=== PATIENT | male | born 1995 | race Caucasian/White ===

== ENCOUNTER 2019-08-23 20:00 | Inpatient (IN) | payer MEDICAID ==
[~2019-08-23] VITALS: Ht 175.3 cm; Wt 108.3 kg
[~2019-08-23 20:00] MED LIST: BUSP10TA23 PO; ESZO2 PO; PROZ10 PO
[2019-08-23] MEDS ORDERED: HYDR-4031 PO (20:27)
[2019-08-23] MEDS ORDERED: RISP1 PO (20:27)
[2019-08-23 20:54] LABS: BASOPHILS % (AUTO) 0.8 % (0.0-2.0); EOSINOPHILS % (AUTO) 1.7 % (1.0-6.0); HEMATOCRIT 50.2 % (41-53); HEMOGLOBIN 16.4 g/dL (13.5-17.5); LYMPHOCYTES # (AUTO) 2.8 K/uL (1.0-4.8); MEAN CORPUSCULAR HGB CONC 32.7 G/dL (31.0-37.0); MEAN CORPUSCULAR VOLUME 76 fL (80-100); MONOCYTES # (AUTO) 0.8 K/uL (0.1-1.0); MONOCYTES % (AUTO) 11.1 % (2.0-9.0); NEUTROPHILS # (AUTO) 3.7 K/uL (1.8-7.7); NEUTROPHILS % (AUTO) 49.4 % (40.0-70.0); PLATELET COUNT (AUTO) 295 K/uL (150-450); RED BLOOD CELL COUNT(AUTO) 6.58 MIL/uL (4.50-5.90); RED CELL DISTRIBUTION WIDTH 13.3 % (11.5-14.5)
[2019-08-23 21:01] LABS: ANION GAP 9 mmol/L (8-16); CALCIUM, TOTAL 9.1 mg/dL (8.8-10.5); CARBON DIOXIDE 28 mmol/L (22-29); CHLORIDE 102 mmol/L (98-107); CREATININE 0.91 mg/dL (0.60-1.30); GLOMERULAR FILTR. RATE CALC > 60 mL/min (>60); GLUCOSE,RANDOM 84 mg/dL (70-110); POTASSIUM 3.7 mmol/L (3.5-5.1); SODIUM SERUM 139 mmol/L (136-145); UREA NITROGEN, BLOOD 7 mg/dL (7-18)
[2019-08-23 21:04] LABS: AMPHET/METH SCREEN,URINE NEGATIVE (NEGATIVE); BARBITURATE SCREEN, URINE NEGATIVE (NEGATIVE); BENZODIAZEPINES SCREEN,URINE NEGATIVE (NEGATIVE); CANNABINOID SCREEN,URINE NEGATIVE (NEGATIVE); COCAINE SCREEN,URINE NEGATIVE (NEGATIVE); METHADONE SCREEN, URINE NEGATIVE (NEGATIVE); OPIATE SCREEN,URINE NEGATIVE (NEGATIVE)
[2019-08-23 21:05] LABS: PHENCYCLIDINE SCREEN,URINE NEGATIVE (NEGATIVE)
[2019-08-23 21:07] LABS: ALANINE AMINOTRANSFERASE 128 U/L (12-78); ALBUMIN 4.7 g/dL (3.4-5.0); ALKALINE PHOSPHATASE 87 U/L (46-116); ASPARTATE AMINOTRANSFERASE 42 U/L (15-37); BILIRUBIN,TOTAL 0.7 mg/dL (0.1-1.0); TOTAL PROTEIN, SERUM 8.5 g/dL (6.4-8.2)
[2019-08-24] MEDS ORDERED: HydrOXYzine PAMOATE 25 MG CAPSULE PO ONE (00:30)
[2019-08-24] MEDS ORDERED: RisperiDONE 1 MG TABLET PO ONE (00:30)
[2019-08-24] MEDS ORDERED: LORazepam 2 MG TABLET PO PRN (01:15)
[2019-08-24] MEDS ORDERED: HALOPERIDOL 5 MG TABLET PO PRN (01:15)
[2019-08-24] MEDS ORDERED: ZOLPIDEM TARTRATE 10 MG TABLET PO PRN (01:15)
[2019-08-24 02:22] VITALS: BP 138/86
[2019-08-24] MEDS ORDERED: INFLUENZA VIRUS VACCINE QVS 2019-20 (3YR+)/PF 60 MCG/0.5 ML SYRINGE IM ONE (02:30)
[2019-08-24 10:48] VITALS: BP 139/81
[2019-08-24] MEDS: RisperiDONE 1 MG TABLET PO SCH ×3 (13:30→20:01)
[2019-08-24] MEDS ORDERED: DOCUSATE SODIUM 100 MG CAPSULE PO PRN (14:45)
[2019-08-24] MEDS ORDERED: GuaiFENesin/D-METHORPHAN [SUGAR-FREE] 200-20MG/10 ML SYRUP UDCUP PO PRN (14:45)
[2019-08-24] MEDS ORDERED: ALBUTEROL SULFATE HFA 90 MCG/PUFF 8 GM INHALER IH PRN (14:45)
[2019-08-24] MEDS ORDERED: MAGNESIUM HYDROXIDE SUSPENSION 30 ML UDCUP PO PRN (14:45)
[2019-08-24] MEDS ORDERED: NICOTINE 14 MG/24 HOUR PATCH TD PRN (14:45)
[2019-08-24] MEDS ORDERED: ACETAMINOPHEN 325 MG TABLET PO PRN (14:45)
[2019-08-24] MEDS ORDERED: CloNIDine HCL 0.1 MG TABLET PO PRN (14:45)
[2019-08-24] MEDS ORDERED: LOPERAMIDE HCL 2 MG CAPSULE PO PRN (14:45)
[2019-08-24] MEDS ORDERED: ONDANSETRON HCL 4 MG TABLET PO PRN (14:45)
[2019-08-24] MEDS ORDERED: PETROLATUM,WHITE 28 GM JELLY TP PRN (14:45)
[2019-08-24] MEDS ORDERED: MAG HYDROX/AL HYDROX/SIMETH ES 30 ML SUSPENSION UDCUP PO PRN (14:45)
[2019-08-24] MEDS ORDERED: IBUPROFEN 400 MG TABLET PO PRN (14:45)
[2019-08-24 16:43] VITALS: BP 132/88
[2019-08-25 08:00] VITALS: BP 145/108
[2019-08-25 09:00] VITALS: BP 150/88
[2019-08-25] MEDS: RisperiDONE 1 MG TABLET PO SCH ×2 (09:01→20:06)
[2019-08-25] MEDS ORDERED: AmLODIPine BESYLATE 2.5 MG TABLET PO SCH (09:45)
[2019-08-25 17:22] VITALS: BP 124/81
[2019-08-26] MEDS: RisperiDONE 1 MG TABLET PO SCH (08:41)
[2019-08-26] MEDS: AmLODIPine BESYLATE 5 MG TABLET PO SCH (08:42)
[2019-08-26 09:40] VITALS: BP 142/95
[2019-08-26] MEDS: SERTRALINE HCL 50 MG TABLET PO SCH (10:12)
[2019-08-26] MEDS: RisperiDONE 4 MG TABLET PO SCH (20:09)
[2019-08-26] MEDS ORDERED: RisperiDONE 2 MG TABLET PO SCH (21:00)
[2019-08-26 21:28] VITALS: BP 150/79
[2019-08-27 02:59] VITALS: BP 145/101
[2019-08-27 08:45] VITALS: BP 138/88
[2019-08-27] MEDS: SERTRALINE HCL 50 MG TABLET PO SCH (10:45)
[2019-08-27] MEDS: AmLODIPine BESYLATE 5 MG TABLET PO SCH (10:46)
[2019-08-27 16:00] VITALS: BP 135/93
[2019-08-27 17:18] VITALS: BP 129/77
[2019-08-27] MEDS: RisperiDONE 4 MG TABLET PO SCH (20:12)
[2019-08-28 01:33] VITALS: BP 111/71
[2019-08-28] MEDS: AmLODIPine BESYLATE 5 MG TABLET PO SCH (08:19)
[2019-08-28] MEDS: SERTRALINE HCL 50 MG TABLET PO SCH (08:19)
[2019-08-28 08:48] VITALS: BP 132/84
[2019-08-28 16:01] VITALS: BP 119/86
[2019-08-28] MEDS: RisperiDONE 4 MG TABLET PO SCH (20:01)
[2019-08-28] MEDS ORDERED: HALOPERIDOL 5 MG TABLET PO PRN (21:45)
[2019-08-28] MEDS: ZOLPIDEM TARTRATE 10 MG TABLET PO PRN (21:53)
[2019-08-29] MEDS: SERTRALINE HCL 50 MG TABLET PO SCH (08:08)
[2019-08-29] MEDS: AmLODIPine BESYLATE 5 MG TABLET PO SCH (08:08)
[2019-08-29] MEDS: LORazepam 2 MG TABLET PO PRN ×2 (08:13→19:29)
[2019-08-29 09:57] VITALS: BP 137/88
[2019-08-29 16:46] VITALS: BP 115/58
[2019-08-29 19:27] VITALS: BP 126/100
[2019-08-29] MEDS: RisperiDONE 4 MG TABLET PO SCH (20:07)
[2019-08-29] MEDS: ZOLPIDEM TARTRATE 10 MG TABLET PO PRN (22:25)
[2019-08-30] MEDS: SERTRALINE HCL 50 MG TABLET PO SCH (08:59)
[2019-08-30] MEDS: AmLODIPine BESYLATE 5 MG TABLET PO SCH (08:59)
[2019-08-30] MEDS: LORazepam 2 MG TABLET PO PRN ×2 (09:02→16:32)
[2019-08-30 10:20] VITALS: BP 133/90
[2019-08-30 16:57] VITALS: BP 133/85
[2019-08-30] MEDS: RisperiDONE 4 MG TABLET PO SCH (20:48)
[2019-08-30] MEDS: ZOLPIDEM TARTRATE 10 MG TABLET PO PRN (21:48)
[2019-08-31 01:40] VITALS: BP 124/77
[2019-08-31 08:37] VITALS: BP 146/91
[2019-08-31] MEDS: LORazepam 2 MG TABLET PO PRN (08:52)
[2019-08-31] MEDS: SERTRALINE HCL 50 MG TABLET PO SCH (08:52)
[2019-08-31] MEDS: AmLODIPine BESYLATE 5 MG TABLET PO SCH (08:52)
[2019-08-31] MEDS ORDERED: RISP4 PO (10:35)
[2019-08-31] MEDS ORDERED: SERT50TA12 PO (10:35)
[2019-08-31] MEDS ORDERED: AMLO5TAB9 PO (12:36)
== END 2019-08-31 13:00 | disposition home or self-care (01) | DRG 885 ==
LOC: EMS 20:00 → 3EI 08-24 01:22
DX: F20.0 Paranoid schizophrenia (principal); R45.851 Suicidal ideations; E78.5 Hyperlipidemia, unspecified; F12.90 Cannabis use, unspecified, uncomplicated; F32.9 Major depressive disorder, single episode, unspecified; R74.0 Nonspecific elevation of levels of transaminase and lactic acid dehydrogenase [LDH]; I10 Essential (primary) hypertension; Z79.899 Other long term (current) drug therapy; Z28.21 Immunization not carried out because of patient refusal; Z91.14 Patient's other noncompliance with medication regimen; Z88.8 Allergy status to other drugs, medicaments and biological substances
CPT/HCPCS: 80074; G0480; Q0162

== ENCOUNTER 2020-05-25 17:50 | Emergency (ER) | payer MEDICAID, OTHER ==
[~2020-05-25] VITALS: Ht 177.8 cm; Wt 106.8 kg
[~2020-05-25 17:50] MED LIST changes: -BUSP10TA23 PO; -ESZO2 PO; -PROZ10 PO; +RISP4TAB73 PO; +SERT50TA12 PO; +SIMV-259 PO
[2020-05-25] MEDS ORDERED: RISP1TAB27 PO (17:56)
[2020-05-25] MEDS ORDERED: AMLO2.5T96 PO (17:56)
[2020-05-25] MEDS ORDERED: VITA100051 PO (17:56)
[2020-05-25] MEDS ORDERED: ZOLP-280 PO (17:56)
[2020-05-25] MEDS ORDERED: OMEG-50 PO (17:56)
[2020-05-25 19:08] LABS: BASOPHILS % (AUTO) 0.5 % (0.0-2.0); EOSINOPHILS % (AUTO) 1.7 % (1.0-6.0); HEMATOCRIT 48.2 % (41-53); HEMOGLOBIN 15.7 g/dL (13.5-17.5); LYMPHOCYTES # (AUTO) 2.6 K/uL (1.0-4.8); LYMPHOCYTES % (AUTO) 30.5 % (22.0-44.0); MEAN CORPUSCULAR HEMOGLOBIN 24.5 pg (26.0-34.0); MEAN CORPUSCULAR HGB CONC 32.5 G/dL (31.0-37.0); MEAN CORPUSCULAR VOLUME 76 fL (80-100); MONOCYTES # (AUTO) 1.2 K/uL (0.1-1.0); MONOCYTES % (AUTO) 14.2 % (2.0-9.0); NEUTROPHILS # (AUTO) 4.6 K/uL (1.8-7.7); NEUTROPHILS % (AUTO) 53.1 % (40.0-70.0); PLATELET COUNT (AUTO) 345 K/uL (150-450); RED BLOOD CELL COUNT(AUTO) 6.39 MIL/uL (4.50-5.90); RED CELL DISTRIBUTION WIDTH 13.8 % (11.5-14.5)
[2020-05-25 19:22] LABS: ANION GAP 9 mmol/L (8-16); CALCIUM, TOTAL 9.8 mg/dL (8.8-10.5); CARBON DIOXIDE 24 mmol/L (22-29); CHLORIDE 101 mmol/L (98-107); CREATININE 0.94 mg/dL (0.60-1.30); GLOMERULAR FILTR. RATE CALC > 60 mL/min (>60); GLUCOSE,RANDOM 96 mg/dL (70-110); POTASSIUM 3.4 mmol/L (3.5-5.1); SODIUM SERUM 134 mmol/L (136-145); UREA NITROGEN, BLOOD 15 mg/dL (7-18)
[2020-05-25 19:26] LABS: ALANINE AMINOTRANSFERASE 218 U/L (12-78); ALBUMIN 4.5 g/dL (3.4-5.0); ALKALINE PHOSPHATASE 66 U/L (46-116); ASPARTATE AMINOTRANSFERASE 70 U/L (15-37); BILIRUBIN,TOTAL 0.6 mg/dL (0.1-1.0); TOTAL PROTEIN, SERUM 8.3 g/dL (6.4-8.2)
[2020-05-25] MEDS ORDERED: HALOPERIDOL 5 MG TABLET PO ONE (20:30)
[2020-05-25] MEDS ORDERED: DiphenhydrAMINE HCL 25 MG CAPSULE PO ONE (20:30)
[2020-05-25] MEDS: POTASSIUM CHLORIDE 20 MEQ ER TABLET PO ONE ×2 (21:06→21:10)
[2020-05-25 21:38] VITALS: BP 145/85
== END 2020-05-25 22:00 | disposition home or self-care (01) ==
LOC: EMS 17:50
DX: F25.9 Schizoaffective disorder, unspecified (principal); E87.6 Hypokalemia; R74.8 Abnormal levels of other serum enzymes; I10 Essential (primary) hypertension; E78.00 Pure hypercholesterolemia, unspecified; Z88.8 Allergy status to other drugs, medicaments and biological substances; Z79.899 Other long term (current) drug therapy
CPT/HCPCS: 36415; 80053; 85025; 99284; G0480

== ENCOUNTER 2021-11-03 12:24 | Inpatient (IN) | payer MEDICAID, OTHER ==
[~2021-11-03] VITALS: Ht 182.9 cm; Wt 133.8 kg
[~2021-11-03 12:24] MED LIST changes: +AMLO2.5T96 PO; +OMEG-50 PO; +RISP1TAB48 PO; -RISP4TAB73 PO; -SERT50TA12 PO; -SIMV-259 PO; +VITA100051 PO; +ZOLP-280 PO
[2021-11-03 13:49] LABS: BASOPHILS % (AUTO) 0.5 % (0.0-2.0); EOSINOPHILS % (AUTO) 0.4 % (1.0-6.0); HEMATOCRIT 48.3 % (41-53); HEMOGLOBIN 16.4 g/dL (13.5-17.5); LYMPHOCYTES # (AUTO) 2.2 K/uL (1.0-4.8); LYMPHOCYTES % (AUTO) 20.4 % (22.0-44.0); MEAN CORPUSCULAR HEMOGLOBIN 25.1 pg (26.0-34.0); MEAN CORPUSCULAR HGB CONC 33.9 G/dL (31.0-37.0); MEAN CORPUSCULAR VOLUME 74 fL (80-100); MONOCYTES # (AUTO) 1.1 K/uL (0.1-1.0); MONOCYTES % (AUTO) 10.2 % (2.0-9.0); NEUTROPHILS # (AUTO) 7.5 K/uL (1.8-7.7); NEUTROPHILS % (AUTO) 68.5 % (40.0-70.0); PLATELET COUNT (AUTO) 365 K/uL (150-450); RED BLOOD CELL COUNT(AUTO) 6.52 MIL/uL (4.50-5.90); RED CELL DISTRIBUTION WIDTH 14.4 % (11.5-14.5)
[2021-11-03 14:05] LABS: ANION GAP 15 mmol/L (8-16); CALCIUM, TOTAL 9.2 mg/dL (8.8-10.5); CARBON DIOXIDE 23 mmol/L (22-29); CHLORIDE 101 mmol/L (98-107); CREATININE 1.08 mg/dL (0.60-1.30); GLOMERULAR FILTR. RATE CALC > 60 mL/min (>60); GLUCOSE,RANDOM 105 mg/dL (70-110); POTASSIUM 3.8 mmol/L (3.5-5.1); SODIUM SERUM 139 mmol/L (136-145); UREA NITROGEN, BLOOD 12 mg/dL (7-18)
[2021-11-03 14:10] LABS: ALANINE AMINOTRANSFERASE 119 U/L (12-78); ALBUMIN 4.4 g/dL (3.4-5.0); ALKALINE PHOSPHATASE 104 U/L (46-116); ASPARTATE AMINOTRANSFERASE 50 U/L (15-37); BILIRUBIN,TOTAL 0.8 mg/dL (0.1-1.0); TOTAL PROTEIN, SERUM 8.2 g/dL (6.4-8.2)
[2021-11-03] MEDS ORDERED: ACETAMINOPHEN 325 MG TABLET PO PRN (15:00)
[2021-11-03] MEDS ORDERED: HALOPERIDOL LACTATE 5 MG/ML VIAL IM ONE (15:00)
[2021-11-03] MEDS ORDERED: LORazepam 2 MG/ML VIAL IM ONE (15:00)
[2021-11-03] MEDS ORDERED: DiphenhydrAMINE HCL 50 MG/ML VIAL IM ONE (15:00)
[2021-11-03] MEDS ORDERED: RisperiDONE 1 MG TABLET PO PRN (15:00)
[2021-11-03] MEDS ORDERED: ZOLPIDEM TARTRATE 10 MG TABLET PO PRN (15:00)
[2021-11-03] MEDS ORDERED: LORazepam 2 MG TABLET PO PRN (15:00)
[2021-11-03 15:41] LABS: CHOL/HDL RATIO 4.2 (4.2-7.3); CHOLESTEROL 189 mg/dL (131-200); FREE T4 (FREE THYROXINE) 0.86 ng/dL (0.76-1.46); HDL CHOLESTEROL 45 mg/dL (40-60); LDL CHOL (CALC.) 120 mg/dL (0-130); TRIGLYCERIDES 119 mg/dL (15-150)
[2021-11-03 17:02] LABS: COVID AG,FIA SOURCE NASOPHARYNGEAL
[2021-11-04] MEDS ORDERED: INFLUENZA VIRUS VACCINE QVS 2021-22 (6MO+)/PF 60 MCG/0.5 ML SYRINGE IM. ONE (00:15)
[2021-11-04 04:28] VITALS: BP 128/77
[2021-11-04 08:38] VITALS: BP 145/101
[2021-11-04] MEDS ORDERED: AmLODIPine BESYLATE 2.5 MG TABLET PO SCH (09:00)
[2021-11-04] MEDS: LORazepam 2 MG TABLET PO PRN ×2 (09:03→17:47)
[2021-11-04 11:00] VITALS: BP 132/74
[2021-11-04] MEDS ORDERED: PETROLATUM,WHITE 28 GM JELLY TP PRN (11:15)
[2021-11-04] MEDS ORDERED: DOCUSATE SODIUM 100 MG CAPSULE PO PRN (11:15)
[2021-11-04] MEDS ORDERED: ALBUTEROL SULFATE HFA 90 MCG/PUFF 8 GM INHALER IH PRN (11:15)
[2021-11-04] MEDS ORDERED: CloNIDine HCL 0.1 MG TABLET PO PRN (11:15)
[2021-11-04] MEDS ORDERED: GuaiFENesin/D-METHORPHAN [SUGAR-FREE] 200-20MG/10 ML SYRUP UDCUP PO PRN (11:15)
[2021-11-04] MEDS ORDERED: NICOTINE 14 MG/24 HOUR PATCH TD PRN (11:15)
[2021-11-04] MEDS ORDERED: MAGNESIUM HYDROXIDE SUSPENSION 30 ML UDCUP PO PRN (11:15)
[2021-11-04] MEDS ORDERED: IBUPROFEN 400 MG TABLET PO PRN (11:15)
[2021-11-04] MEDS ORDERED: ACETAMINOPHEN 325 MG TABLET PO PRN (11:15)
[2021-11-04] MEDS ORDERED: ONDANSETRON HCL 4 MG TABLET PO PRN (11:15)
[2021-11-04] MEDS ORDERED: MAG HYDROX/AL HYDROX/SIMETH ES 30 ML SUSPENSION UDCUP PO PRN (11:15)
[2021-11-04] MEDS ORDERED: LOPERAMIDE HCL 2 MG CAPSULE PO PRN (11:15)
[2021-11-04] MEDS: PARoxetine HCL 20 MG TABLET PO SCH (14:11)
[2021-11-04] MEDS: RisperiDONE 4 MG TABLET PO SCH (14:12)
[2021-11-04 16:14] VITALS: BP 140/84
[2021-11-04] MEDS ORDERED: PROPRANOLOL HCL 20 MG TABLET PO SCH (16:45)
[2021-11-04] MEDS: AmLODIPine BESYLATE 10 MG TABLET PO SCH (17:47)
[2021-11-04] MEDS ORDERED: PROPRANOLOL HCL 10 MG TABLET ONE (18:28)
[2021-11-04] MEDS ORDERED: PROPRANOLOL HCL 10 MG TABLET PO SCH (18:45)
[2021-11-04 19:52] VITALS: BP 131/85
[2021-11-04] MEDS: LURASIDONE HCL 60 MG TABLET PO SCH (20:53)
[2021-11-04] MEDS: HALOPERIDOL 5 MG TABLET PO PRN (20:53)
[2021-11-05 06:47] VITALS: BP 125/78
[2021-11-05 08:25] VITALS: BP 137/84
[2021-11-05] MEDS: RisperiDONE 4 MG TABLET PO SCH (08:52)
[2021-11-05] MEDS: PROPRANOLOL HCL 10 MG TABLET PO SCH (08:52)
[2021-11-05] MEDS: PARoxetine HCL 20 MG TABLET PO SCH (08:52)
[2021-11-05] MEDS: AmLODIPine BESYLATE 10 MG TABLET PO SCH (08:52)
[2021-11-05] MEDS: LORazepam 2 MG TABLET PO PRN ×2 (10:09→14:11)
[2021-11-05] MEDS: HALOPERIDOL 5 MG TABLET PO PRN (13:31)
[2021-11-05 16:31] VITALS: BP 116/69
[2021-11-05] MEDS: LURASIDONE HCL 60 MG TABLET PO SCH (20:12)
[2021-11-05] MEDS: ZOLPIDEM TARTRATE 10 MG TABLET PO PRN (20:12)
[2021-11-06] MEDS: HALOPERIDOL 5 MG TABLET PO PRN ×2 (01:14→13:21)
[2021-11-06] MEDS: LORazepam 2 MG TABLET PO PRN ×3 (01:14→18:01)
[2021-11-06 04:00] VITALS: BP 118/74
[2021-11-06] MEDS: AmLODIPine BESYLATE 10 MG TABLET PO SCH (08:21)
[2021-11-06] MEDS: PROPRANOLOL HCL 10 MG TABLET PO SCH (08:21)
[2021-11-06] MEDS: RisperiDONE 4 MG TABLET PO SCH (08:21)
[2021-11-06] MEDS: PARoxetine HCL 20 MG TABLET PO SCH (08:21)
[2021-11-06 08:38] VITALS: BP 122/71
[2021-11-06 16:15] VITALS: BP 134/95
[2021-11-06] MEDS: LURASIDONE HCL 60 MG TABLET PO SCH (23:07)
[2021-11-07 04:52] VITALS: BP 131/86
[2021-11-07 08:10] VITALS: BP 128/80
[2021-11-07] MEDS: AmLODIPine BESYLATE 10 MG TABLET PO SCH (08:47)
[2021-11-07] MEDS: LORazepam 2 MG TABLET PO PRN ×2 (08:47→16:34)
[2021-11-07] MEDS: RisperiDONE 4 MG TABLET PO SCH (08:47)
[2021-11-07] MEDS: PROPRANOLOL HCL 10 MG TABLET PO SCH (08:47)
[2021-11-07] MEDS: PARoxetine HCL 20 MG TABLET PO SCH (08:47)
[2021-11-07 16:23] VITALS: BP 146/82
[2021-11-07] MEDS: ZOLPIDEM TARTRATE 10 MG TABLET PO PRN (20:16)
[2021-11-07] MEDS: LURASIDONE HCL 60 MG TABLET PO SCH (20:16)
[2021-11-08 04:51] VITALS: BP 130/82
[2021-11-08 08:09] VITALS: BP 117/69
[2021-11-08] MEDS: PARoxetine HCL 20 MG TABLET PO SCH (08:57)
[2021-11-08] MEDS: AmLODIPine BESYLATE 10 MG TABLET PO SCH (08:57)
[2021-11-08] MEDS: PROPRANOLOL HCL 10 MG TABLET PO SCH (08:57)
[2021-11-08] MEDS: RisperiDONE 4 MG TABLET PO SCH (08:57)
[2021-11-08] MEDS: LORazepam 2 MG TABLET PO PRN (12:50)
[2021-11-08 16:11] VITALS: BP 122/78
[2021-11-08] MEDS: HALOPERIDOL 5 MG TABLET PO PRN (16:26)
[2021-11-08] MEDS: ZOLPIDEM TARTRATE 10 MG TABLET PO PRN (20:44)
[2021-11-08] MEDS: LURASIDONE HCL 60 MG TABLET PO SCH (20:44)
[2021-11-09 03:25] VITALS: BP 105/63
[2021-11-09 08:22] VITALS: BP 141/90
[2021-11-09] MEDS: PROPRANOLOL HCL 10 MG TABLET PO SCH (08:33)
[2021-11-09] MEDS: AmLODIPine BESYLATE 10 MG TABLET PO SCH (08:33)
[2021-11-09] MEDS: RisperiDONE 4 MG TABLET PO SCH (08:33)
[2021-11-09] MEDS: PARoxetine HCL 20 MG TABLET PO SCH (08:33)
[2021-11-09] MEDS: LORazepam 2 MG TABLET PO PRN ×2 (09:23→13:23)
[2021-11-09] MEDS: RisperiDONE 2 MG TABLET PO SCH (11:54)
[2021-11-09] MEDS: HALOPERIDOL 5 MG TABLET PO PRN (13:21)
[2021-11-09 16:18] VITALS: BP 140/92
[2021-11-09] MEDS: LURASIDONE HCL 60 MG TABLET PO SCH (20:13)
[2021-11-09] MEDS: ZOLPIDEM TARTRATE 10 MG TABLET PO PRN (20:13)
[2021-11-10 05:50] VITALS: BP 108/61
[2021-11-10 08:28] VITALS: BP 156/105
[2021-11-10] MEDS: LORazepam 2 MG TABLET PO PRN ×3 (09:27→21:35)
[2021-11-10] MEDS: RisperiDONE 2 MG TABLET PO SCH (09:27)
[2021-11-10] MEDS: AmLODIPine BESYLATE 10 MG TABLET PO SCH (09:27)
[2021-11-10] MEDS: PROPRANOLOL HCL 10 MG TABLET PO SCH (09:27)
[2021-11-10] MEDS: HALOPERIDOL 5 MG TABLET PO PRN ×2 (09:27→13:41)
[2021-11-10] MEDS: PARoxetine HCL 20 MG TABLET PO SCH (09:27)
[2021-11-10] MEDS: RisperiDONE 4 MG TABLET PO SCH (09:27)
[2021-11-10 16:17] VITALS: BP 133/83
[2021-11-10] MEDS: LURASIDONE HCL 60 MG TABLET PO SCH (21:12)
[2021-11-10] MEDS: ZOLPIDEM TARTRATE 10 MG TABLET PO PRN (21:35)
[2021-11-11 07:01] VITALS: BP 124/71
[2021-11-11 08:38] VITALS: BP 130/74
[2021-11-11] MEDS ORDERED: RisperiDONE 2 MG TABLET PO SCH (09:00)
[2021-11-11] MEDS: RisperiDONE 3 MG TABLET PO SCH (09:25)
[2021-11-11] MEDS: PARoxetine HCL 20 MG TABLET PO SCH (09:25)
[2021-11-11] MEDS: AmLODIPine BESYLATE 10 MG TABLET PO SCH (09:25)
[2021-11-11] MEDS: PROPRANOLOL HCL 10 MG TABLET PO SCH (09:25)
[2021-11-11] MEDS: LORazepam 2 MG TABLET PO PRN ×2 (09:26→17:14)
[2021-11-11 13:11] LABS: GLUCOMETER DEV NAME(LOC) POC.BV
[2021-11-11 16:14] VITALS: BP 112/66
[2021-11-11] MEDS: HALOPERIDOL 5 MG TABLET PO PRN (17:14)
[2021-11-11] MEDS: LURASIDONE HCL 60 MG TABLET PO SCH (20:22)
[2021-11-11] MEDS: ZOLPIDEM TARTRATE 10 MG TABLET PO PRN (20:22)
[2021-11-12] MEDS: HALOPERIDOL 5 MG TABLET PO PRN ×2 (03:36→16:53)
[2021-11-12] MEDS: LORazepam 2 MG TABLET PO PRN ×3 (03:36→16:53)
[2021-11-12 05:15] VITALS: BP 110/64
[2021-11-12 08:09] VITALS: BP 121/71
[2021-11-12] MEDS: RisperiDONE 3 MG TABLET PO SCH (08:50)
[2021-11-12] MEDS: PARoxetine HCL 20 MG TABLET PO SCH (08:50)
[2021-11-12] MEDS: PROPRANOLOL HCL 10 MG TABLET PO SCH (08:50)
[2021-11-12] MEDS: AmLODIPine BESYLATE 10 MG TABLET PO SCH (08:50)
[2021-11-12 16:39] VITALS: BP 131/78
[2021-11-12] MEDS: LURASIDONE HCL 60 MG TABLET PO SCH (20:17)
[2021-11-12] MEDS: ZOLPIDEM TARTRATE 10 MG TABLET PO PRN (20:17)
[2021-11-13] MEDS: LORazepam 2 MG TABLET PO PRN ×2 (04:39→08:39)
[2021-11-13] MEDS: HALOPERIDOL 5 MG TABLET PO PRN ×2 (04:39→08:39)
[2021-11-13 04:40] VITALS: BP 144/84
[2021-11-13] MEDS: PARoxetine HCL 20 MG TABLET PO SCH (08:35)
[2021-11-13] MEDS: AmLODIPine BESYLATE 10 MG TABLET PO SCH (08:35)
[2021-11-13] MEDS: PROPRANOLOL HCL 10 MG TABLET PO SCH (08:35)
[2021-11-13] MEDS: RisperiDONE 3 MG TABLET PO SCH (08:35)
[2021-11-13] MEDS ORDERED: PARO-38 PO (09:56)
[2021-11-13] MEDS ORDERED: PROP20TA18 PO (09:56)
[2021-11-13] MEDS ORDERED: LURA60TA PO ×2 (09:56→10:19)
[2021-11-13] MEDS ORDERED: RISP3TAB63 PO (10:19)
[2021-11-13] MEDS ORDERED: PROP10TA72 PO (10:19)
[2021-11-13] MEDS ORDERED: PARO-37 PO (10:19)
[2021-11-13 10:26] VITALS: BP 137/95
== END 2021-11-13 12:45 | disposition home or self-care (01) | DRG 750 ==
LOC: EMS 12:42 → B3A 16:57
PROVIDERS: ADMIT Psychiatry & Neurology Child & Adolescent Psychiatry; ATTEND Psychiatry & Neurology Child & Adolescent Psychiatry
DX: F25.1 Schizoaffective disorder, depressive type (principal); Z59.00 Homelessness unspecified; E66.9 Obesity, unspecified; I10 Essential (primary) hypertension; E78.00 Pure hypercholesterolemia, unspecified; E78.5 Hyperlipidemia, unspecified; F41.9 Anxiety disorder, unspecified; Z20.822 Contact with and (suspected) exposure to COVID-19; Z68.41 Body mass index [BMI] 40.0-44.9, adult; Z78.1 Physical restraint status; Z79.899 Other long term (current) drug therapy; Z88.8 Allergy status to other drugs, medicaments and biological substances
CPT/HCPCS: 80053; 80061; 84439; 84443; 85025; 90686; 99285; G0480; J1200; J1630; J2060; Q9967

== ENCOUNTER 2022-07-25 04:34 | Inpatient (IN) | payer MEDICAID, OTHER ==
[~2022-07-25] VITALS: Ht 182.9 cm; Wt 137.7 kg
[~2022-07-25 04:34] MED LIST changes: +LURA60TA PO; -OMEG-50 PO; +PARO-37 PO; +PROP10TA72 PO; -RISP1TAB48 PO; +RISP3TAB63 PO; -VITA100051 PO; -ZOLP-280 PO
[2022-07-25] MEDS ORDERED: SODIUM CHLORIDE 0.9% 1,000 ML IV ONE ×2 (05:00→06:30)
[2022-07-25 05:16] LABS: BASOPHILS % (AUTO) 0.7 % (0.0-2.0); EOSINOPHILS % (AUTO) 0 % (1.0-6.0); HEMATOCRIT 47.6 % (41-53); HEMOGLOBIN 15.2 g/dL (13.5-17.5); LYMPHOCYTES % (AUTO) 8.6 % (22.0-44.0); MEAN CORPUSCULAR VOLUME 78 fL (80-100); MONOCYTES # (AUTO) 1.9 K/uL (0.1-1.0); MONOCYTES % (AUTO) 8.2 % (2.0-9.0); NEUTROPHILS # (AUTO) 19.7 K/uL (1.8-7.7); NEUTROPHILS % (AUTO) 82.5 % (40.0-70.0); PLATELET COUNT (AUTO) 423 K/uL (150-450)
[2022-07-25 05:24] LABS: ANION GAP 12 mmol/L (8-16); CALCIUM, TOTAL 9.6 mg/dL (8.8-10.5); CARBON DIOXIDE 24 mmol/L (22-29); CHLORIDE 104 mmol/L (98-107); CREATININE 1.19 mg/dL (0.60-1.30); GLOMERULAR FILTR. RATE CALC > 60 mL/min (>60); GLUCOSE,RANDOM 124 mg/dL (70-110); POTASSIUM 3.7 mmol/L (3.5-5.1); SODIUM SERUM 140 mmol/L (136-145); UREA NITROGEN, BLOOD 9 mg/dL (7-18)
[2022-07-25 05:30] LABS: ALANINE AMINOTRANSFERASE 135 U/L (12-78); ALBUMIN 4.3 g/dL (3.4-5.0); ALKALINE PHOSPHATASE 91 U/L (46-116); ASPARTATE AMINOTRANSFERASE 90 U/L (15-37); BILIRUBIN,TOTAL 0.3 mg/dL (0.1-1.0); TOTAL PROTEIN, SERUM 8.3 g/dL (6.4-8.2)
[2022-07-25 05:38] LABS: SALICYLATE 1.3 mg/dL (2.8-20.0)
[2022-07-25 05:45] LABS: ACETAMINOPHEN < 2 mcg/mL (10-30)
[2022-07-25 09:03] LABS: APPEARANCE,URINE CLEAR (CLEAR); BILIRUBIN,URINE NEGATIVE (NEGATIVE); GLUCOSE, URINE (UA) NEGATIVE (NEGATIVE); KETONES,URINE TRACE mg/dL (NEGATIVE); LEUKOCYTE ESTERASE ,URINE NEGATIVE (NEGATIVE); NITRATE,URINE NEGATIVE (NEGATIVE); OCCULT BLOOD,URINE LARGE (NEGATIVE); PROTEIN,URINE 100-200,SEE CONFIRM mg/dL (NEGATIVE); SPECIFIC GRAVITIY, URINE 1.017 (1.003-1.030); UROBILINOGEN,URINE <=1.0 mg/dL (<=1.0)
[2022-07-25 09:20] LABS: SULFOSALICYLIC ACID,URINE 2+ (Negative)
[2022-07-25 09:21] LABS: BACTERIA,URINE None Seen /HPF (None Seen); WBC,URINE None Seen /HPF (0-5)
[2022-07-25] MEDS ORDERED: ONDANSETRON HCL 4 MG/2 ML VIAL IVP PRN ×2 (09:30→11:15)
[2022-07-25] MEDS ORDERED: ACETAMINOPHEN 325 MG TABLET PO PRN ×2 (09:30→11:15)
[2022-07-25] MEDS ORDERED: 0.9% SODIUM CHLORIDE 10 ML SYRINGE IVP PRN ×2 (09:30→11:15)
[2022-07-25] MEDS ORDERED: SODIUM CHLORIDE 0.9% 1,000 ML IV SCH (11:00)
[2022-07-25] MEDS ORDERED: MAGNESIUM HYDROXIDE SUSPENSION 30 ML UDCUP PO PRN (11:15)
[2022-07-25] MEDS ORDERED: IPRATROPIUM BROMIDE 0.5 MG/2.5 ML NEB SOLUTION NEB PRN (11:15)
[2022-07-25] MEDS ORDERED: DOCUSATE SODIUM 100 MG CAPSULE PO PRN (11:15)
[2022-07-25] MEDS ORDERED: BISACODYL 10 MG RECTAL RECTAL SUPPOSITORY PR PRN (11:15)
[2022-07-25] MEDS ORDERED: ALBUTEROL SULFATE 2.5 MG/0.5 ML NEB SOLUTION NEB PRN (11:15)
[2022-07-25] MEDS: SODIUM CHLORIDE 0.9% 1,000 ML IV SCH ×2 (11:38→22:24)
[2022-07-25 11:45] VITALS: BP 146/100
[2022-07-25 12:34] LABS: % IRON SATURATION 7.1 % (30-44)
[2022-07-25 12:42] LABS: FREE T4 (FREE THYROXINE) 0.87 ng/dL (0.76-1.46); THYROID STIMULATING HORMONE 0.58 uIU/mL (0.36-3.74)
[2022-07-25 15:16] VITALS: BP 138/96
[2022-07-25 16:51] LABS: AMPHET/METH SCREEN,URINE NEGATIVE (NEGATIVE); BARBITURATE SCREEN, URINE NEGATIVE (NEGATIVE); BENZODIAZEPINES SCREEN,URINE POSITIVE (NEGATIVE); CANNABINOID SCREEN,URINE NEGATIVE (NEGATIVE); COCAINE SCREEN,URINE NEGATIVE (NEGATIVE); METHADONE SCREEN, URINE NEGATIVE (NEGATIVE); OPIATE SCREEN,URINE NEGATIVE (NEGATIVE)
[2022-07-25 16:54] LABS: PHENCYCLIDINE SCREEN,URINE POSITIVE (NEGATIVE)
[2022-07-25 19:15] VITALS: BP 139/98
[2022-07-25] MEDS ORDERED: INFLUENZA VIRUS VACCINE QVS 2022-23 (6MO+)/PF 60 MCG/0.5 ML SYRINGE IM. ONE (19:30)
[2022-07-25] MEDS ORDERED: PNEUMOCOCCAL VACCINE POLYVALENT 0.5 ML VIAL [PPSV23] IM. ONE (19:30)
[2022-07-26] VITALS (7 sets, daily range): BP systolic 124–162; BP diastolic 78–103
[2022-07-26] MEDS: ALPRAZolam 0.25 MG TABLET PO PRN ×2 (03:57→17:16)
[2022-07-26 06:45] LABS: BASOPHILS % (AUTO) 0.7 % (0.0-2.0); EOSINOPHILS % (AUTO) 1.2 % (1.0-6.0); HEMATOCRIT 43.3 % (41-53); HEMOGLOBIN 14.1 g/dL (13.5-17.5); LYMPHOCYTES # (AUTO) 3.7 K/uL (1.0-4.8); LYMPHOCYTES % (AUTO) 25.1 % (22.0-44.0); MEAN CORPUSCULAR HEMOGLOBIN 25.3 pg (26.0-34.0); MEAN CORPUSCULAR HGB CONC 32.5 G/dL (31.0-37.0); MEAN CORPUSCULAR VOLUME 78 fL (80-100); MONOCYTES # (AUTO) 1.7 K/uL (0.1-1.0); MONOCYTES % (AUTO) 11.5 % (2.0-9.0); NEUTROPHILS % (AUTO) 61.5 % (40.0-70.0); PLATELET COUNT (AUTO) 329 K/uL (150-450); RED BLOOD CELL COUNT(AUTO) 5.58 MIL/uL (4.50-5.90); RED CELL DISTRIBUTION WIDTH 13.9 % (11.5-14.5)
[2022-07-26 07:05] LABS: ALANINE AMINOTRANSFERASE 225 U/L (12-78); ALBUMIN 3.1 g/dL (3.4-5.0); ALKALINE PHOSPHATASE 71 U/L (46-116); ANION GAP 10 mmol/L (8-16); ASPARTATE AMINOTRANSFERASE 527 U/L (15-37); BILIRUBIN,TOTAL 0.5 mg/dL (0.1-1.0); CALCIUM, TOTAL 8.5 mg/dL (8.8-10.5); CARBON DIOXIDE 24 mmol/L (22-29); CHLORIDE 107 mmol/L (98-107); CREATININE 0.78 mg/dL (0.60-1.30); GLOMERULAR FILTR. RATE CALC > 60 mL/min (>60); GLUCOSE,RANDOM 119 mg/dL (70-110); POTASSIUM 3.5 mmol/L (3.5-5.1); SODIUM SERUM 141 mmol/L (136-145); TOTAL PROTEIN, SERUM 6.4 g/dL (6.4-8.2); UREA NITROGEN, BLOOD 11 mg/dL (7-18)
[2022-07-26 08:06] LABS: HEPATITIS C AB (EIA) <0.1 s/co ratio (0.0-0.9)
[2022-07-26] MEDS: AmLODIPine BESYLATE 10 MG TABLET PO SCH (08:38)
[2022-07-26] MEDS: PARoxetine HCL 20 MG TABLET PO SCH (08:38)
[2022-07-26] MEDS: DOCUSATE SODIUM 100 MG CAPSULE PO SCH ×2 (08:39→21:39)
[2022-07-26] MEDS: DIVALPROEX SODIUM 500 MG DR TABLET PO SCH ×2 (08:39→21:39)
[2022-07-26] MEDS: FERROUS SULFATE 325 MG EC TABLET PO SCH ×4 (08:39→21:39)
[2022-07-26] MEDS: RisperiDONE 3 MG TABLET PO SCH (08:40)
[2022-07-26] MEDS: PROPRANOLOL HCL 20 MG TABLET PO SCH (08:40)
[2022-07-26] MEDS ORDERED: RisperiDONE 3 MG TABLET PO SCH ×2 (09:00)
[2022-07-26] MEDS: SODIUM CHLORIDE 0.9% 1,000 ML IV SCH ×2 (10:51→22:18)
[2022-07-26] MEDS ORDERED: LURASIDONE HCL 60 MG TABLET PO SCH (21:00)
[2022-07-27] MEDS: ALPRAZolam 0.25 MG TABLET PO PRN ×2 (00:42→08:53)
[2022-07-27 04:10] VITALS: BP 153/87
[2022-07-27] MEDS: FERROUS SULFATE 325 MG EC TABLET PO SCH ×3 (08:27→18:00)
[2022-07-27] MEDS: DOCUSATE SODIUM 100 MG CAPSULE PO SCH (08:27)
[2022-07-27] MEDS: PARoxetine HCL 20 MG TABLET PO SCH (08:27)
[2022-07-27] MEDS: RisperiDONE 3 MG TABLET PO SCH (08:28)
[2022-07-27] MEDS: DIVALPROEX SODIUM 500 MG DR TABLET PO SCH (08:28)
[2022-07-27] MEDS: PROPRANOLOL HCL 20 MG TABLET PO SCH (08:29)
[2022-07-27] MEDS: AmLODIPine BESYLATE 10 MG TABLET PO SCH (08:29)
[2022-07-27 08:31] VITALS: BP 143/94
[2022-07-27] MEDS: SODIUM CHLORIDE 0.9% 1,000 ML IV SCH (10:04)
[2022-07-27 15:54] LABS: COVID AG,FIA SOURCE NASOPHARYNGEAL
[2022-07-27 16:35] VITALS: BP 133/77
== END 2022-07-27 18:00 | DRG 816 ==
LOC: EMS 04:35 → 5S 10:43 → 6N 07-26 15:36
PROVIDERS: ADMIT Internal Medicine; ATTEND Internal Medicine
DX: T65.91XA Toxic effect of unspecified substance, accidental (unintentional), initial encounter (principal); R65.10 Systemic inflammatory response syndrome (SIRS) of non-infectious origin without acute organ dysfunction; I11.9 Hypertensive heart disease without heart failure; F25.9 Schizoaffective disorder, unspecified; R00.0 Tachycardia, unspecified; F32.A Depression, unspecified; D50.9 Iron deficiency anemia, unspecified; Z20.822 Contact with and (suspected) exposure to COVID-19; E78.00 Pure hypercholesterolemia, unspecified; R79.89 Other specified abnormal findings of blood chemistry; Z88.8 Allergy status to other drugs, medicaments and biological substances; Y92.89 Other specified places as the place of occurrence of the external cause
CPT/HCPCS: 71045; 76705; 80053; 80074; 81001; 81002; 82728; 83540; 83550; 83880; 84145; 84439; 84443; 85025; 93005; 93306; 99285; G0480; G0481; J7030; Q9967; 36415-L1; 36415-TC

== ENCOUNTER 2022-07-27 16:32 | Inpatient (IN) | payer MEDICAID ==
[~2022-07-27] VITALS: Ht 175.3 cm; Wt 135.4 kg
[2022-07-27] MEDS ORDERED: ALPRAZolam 0.25 MG TABLET PO PRN (17:30)
[2022-07-27] MEDS ORDERED: HALOPERIDOL 5 MG TABLET PO PRN (18:00)
[2022-07-27 18:21] VITALS: BP 157/95
[2022-07-27] MEDS ORDERED: DIVALPROEX SODIUM 250 MG DR TABLET PO SCH (19:06)
[2022-07-27] MEDS: DIVALPROEX SODIUM 500 MG DR TABLET PO SCH (20:24)
[2022-07-27] MEDS ORDERED: LURASIDONE HCL 60 MG TABLET PO SCH (21:00)
[2022-07-27] MEDS: FERROUS SULFATE 325 MG EC TABLET PO SCH (21:14)
[2022-07-27] MEDS: LORazepam 2 MG TABLET PO PRN (22:54)
[2022-07-27] MEDS: ZOLPIDEM TARTRATE 10 MG TABLET PO PRN (22:54)
[2022-07-28] MEDS: FERROUS SULFATE 325 MG EC TABLET PO SCH ×4 (06:36→21:15)
[2022-07-28] MEDS ORDERED: OMEPRAZOLE 20 MG CAPSULE PO PRN (06:45)
[2022-07-28] MEDS ORDERED: ALBUTEROL SULFATE HFA 90 MCG/PUFF 8 GM INHALER IH PRN (06:45)
[2022-07-28] MEDS ORDERED: BENZOCAINE/MENTHOL LOZENGE PO PRN (06:45)
[2022-07-28] MEDS ORDERED: DOCUSATE SODIUM 100 MG CAPSULE PO PRN (06:45)
[2022-07-28] MEDS ORDERED: PETROLATUM,WHITE 28 GM JELLY TP PRN (06:45)
[2022-07-28] MEDS ORDERED: ACETAMINOPHEN 325 MG TABLET PO PRN (06:45)
[2022-07-28] MEDS ORDERED: MAG HYDROX/AL HYDROX/SIMETH ES 30 ML SUSPENSION UDCUP PO PRN (06:45)
[2022-07-28] MEDS ORDERED: MAGNESIUM HYDROXIDE SUSPENSION 30 ML UDCUP PO PRN (06:45)
[2022-07-28] MEDS ORDERED: CloNIDine HCL 0.1 MG TABLET PO PRN (06:45)
[2022-07-28] MEDS ORDERED: IBUPROFEN 600 MG TABLET PO PRN (06:45)
[2022-07-28] MEDS ORDERED: LOPERAMIDE HCL 2 MG CAPSULE PO PRN (06:45)
[2022-07-28] MEDS ORDERED: ONDANSETRON HCL 4 MG TABLET PO PRN (06:45)
[2022-07-28] MEDS ORDERED: BACITRACIN 28 GM OINTMENT TP PRN (06:45)
[2022-07-28] MEDS: DIVALPROEX SODIUM 500 MG DR TABLET PO SCH ×2 (08:41→17:57)
[2022-07-28] MEDS: LORazepam 2 MG TABLET PO PRN ×2 (08:42→18:35)
[2022-07-28] MEDS: PROPRANOLOL HCL 20 MG TABLET PO SCH (08:42)
[2022-07-28] MEDS: RisperiDONE 3 MG TABLET PO SCH (08:42)
[2022-07-28] MEDS: AmLODIPine BESYLATE 10 MG TABLET PO SCH (08:42)
[2022-07-28] MEDS: PARoxetine HCL 20 MG TABLET PO SCH (08:42)
[2022-07-28] MEDS ORDERED: RisperiDONE 3 MG TABLET PO SCH (09:00)
[2022-07-28] MEDS ORDERED: PARoxetine HCL 20 MG TABLET PO SCH (09:00)
[2022-07-28] MEDS ORDERED: DOCUSATE SODIUM 100 MG CAPSULE PO SCH (09:00)
[2022-07-28 09:09] VITALS: BP 149/97
[2022-07-28 17:11] VITALS: BP 138/88
[2022-07-28] MEDS: ZOLPIDEM TARTRATE 10 MG TABLET PO PRN (23:17)
[2022-07-29] MEDS: LORazepam 2 MG TABLET PO PRN ×3 (03:25→16:46)
[2022-07-29 04:58] VITALS: BP 150/85
[2022-07-29 08:00] VITALS: BP 151/92
[2022-07-29] MEDS: AmLODIPine BESYLATE 10 MG TABLET PO SCH (09:56)
[2022-07-29] MEDS: RisperiDONE 3 MG TABLET PO SCH (09:56)
[2022-07-29] MEDS: PROPRANOLOL HCL 20 MG TABLET PO SCH (09:56)
[2022-07-29] MEDS: DIVALPROEX SODIUM 500 MG DR TABLET PO SCH ×2 (09:56→16:46)
[2022-07-29] MEDS: FERROUS SULFATE 325 MG EC TABLET PO SCH ×4 (09:56→20:10)
[2022-07-29] MEDS: PARoxetine HCL 20 MG TABLET PO SCH (10:04)
[2022-07-30] MEDS: LORazepam 2 MG TABLET PO PRN ×2 (03:17→09:10)
[2022-07-30 03:18] VITALS: BP 158/89
[2022-07-30] MEDS: FERROUS SULFATE 325 MG EC TABLET PO SCH ×2 (06:43→12:10)
[2022-07-30 08:30] VITALS: BP 153/95
[2022-07-30] MEDS: AmLODIPine BESYLATE 10 MG TABLET PO SCH (09:00)
[2022-07-30] MEDS: RisperiDONE 3 MG TABLET PO SCH (09:00)
[2022-07-30] MEDS: PARoxetine HCL 20 MG TABLET PO SCH (09:00)
[2022-07-30] MEDS: DIVALPROEX SODIUM 500 MG DR TABLET PO SCH (09:00)
[2022-07-30] MEDS: PROPRANOLOL HCL 20 MG TABLET PO SCH (09:01)
[2022-07-30] MEDS ORDERED: DIVA-112 PO (10:52)
[2022-07-30] MEDS ORDERED: RISP3TAB63 PO (10:52)
[2022-07-30] MEDS ORDERED: PARO-37 PO (10:52)
== END 2022-07-30 15:30 | disposition home or self-care (01) | DRG 750 ==
LOC: 3EI 18:58
PROVIDERS: ADMIT Psychiatry & Neurology Psychiatry; ATTEND Psychiatry & Neurology Psychiatry
DX: F25.9 Schizoaffective disorder, unspecified (principal); E66.9 Obesity, unspecified; I10 Essential (primary) hypertension; K21.9 Gastro-esophageal reflux disease without esophagitis; F41.9 Anxiety disorder, unspecified; G47.00 Insomnia, unspecified; Z82.49 Family history of ischemic heart disease and other diseases of the circulatory system; Z83.3 Family history of diabetes mellitus; Z68.41 Body mass index [BMI] 40.0-44.9, adult
CPT/HCPCS: 87081; Z7610

== ENCOUNTER 2023-08-08 11:56 | Inpatient (IN) | payer MEDICAID, OTHER ==
[~2023-08-08] VITALS: Ht 175.3 cm; Wt 129.5 kg
[~2023-08-08 11:56] MED LIST changes: -AMLO2.5T96 PO; +DIVA-112 PO; -LURA60TA PO; -PROP10TA72 PO
[2023-08-08] MEDS ORDERED: BUPR75TA8 PO (12:20)
[2023-08-08] MEDS ORDERED: AMLO10TA55 PO (12:20)
[2023-08-08] MEDS ORDERED: MIRT-92 PO (12:20)
[2023-08-08] MEDS ORDERED: ATOR20TA65 PO (12:20)
[2023-08-08 12:52] LABS: COVID AG,FIA SOURCE NASAL SWAB
[2023-08-08 13:19] LABS: SARS-COV2 (COVID) ANTIGEN,FIA Negative (Negative)
[2023-08-08 13:28] LABS: BASOPHILS % (AUTO) 0.7 % (0.0-2.0); EOSINOPHILS % (AUTO) 1.4 % (1.0-6.0); HEMOGLOBIN 14.4 g/dL (13.5-17.5); LYMPHOCYTES # (AUTO) 2.2 K/uL (1.0-4.8); MEAN CORPUSCULAR HEMOGLOBIN 25.7 pg (26.0-34.0); MEAN CORPUSCULAR HGB CONC 33.4 G/dL (31.0-37.0); MEAN CORPUSCULAR VOLUME 77 fL (80-100); MONOCYTES % (AUTO) 11.9 % (2.0-9.0); PLATELET COUNT (AUTO) 366 K/uL (150-450); RED BLOOD CELL COUNT(AUTO) 5.59 MIL/uL (4.50-5.90); RED CELL DISTRIBUTION WIDTH 13.6 % (11.5-14.5); WHITE BLOOD COUNT (AUTO) 8.3 K/uL (4.5-11.0)
[2023-08-08 13:38] LABS: ANION GAP 10 mmol/L (8-16); CALCIUM, TOTAL 8.4 mg/dL (8.8-10.5); CARBON DIOXIDE 23 mmol/L (22-29); CHLORIDE 103 mmol/L (98-107); CREATININE 0.84 mg/dL (0.60-1.30); GLOMERULAR FILTR. RATE CALC > 60 mL/min (>60); GLUCOSE,RANDOM 86 mg/dL (70-110); POTASSIUM 3.6 mmol/L (3.5-5.1); SODIUM SERUM 136 mmol/L (136-145); UREA NITROGEN, BLOOD 10 mg/dL (7-18)
[2023-08-08 13:39] LABS: ALCOHOL, BLOOD (SERUM) < 3 mg/dL (0-10)
[2023-08-08 13:44] LABS: ALANINE AMINOTRANSFERASE 86 U/L (12-78); ALBUMIN 3.7 g/dL (3.4-5.0); ALKALINE PHOSPHATASE 69 U/L (46-116); ASPARTATE AMINOTRANSFERASE 39 U/L (15-37); BILIRUBIN,TOTAL 0.5 mg/dL (0.1-1.0); TOTAL PROTEIN, SERUM 7.6 g/dL (6.4-8.2)
[2023-08-08 16:50] VITALS: BP 138/85; PULSE 90; RESP 18; TEMP 97.6
[2023-08-08] MEDS ORDERED: PNEUMOCOCCAL VACCINE POLYVALENT 0.5 ML SYRINGE [PPSV23] IM. ONE (17:15)
[2023-08-08] MEDS ORDERED: INFLUENZA VIRUS VACCINE QVS 2023-24 (6MO+)/PF 60 MCG/0.5 ML SYRINGE IM. ONE (17:15)
[2023-08-08 20:21] VITALS: BP 132/71; PULSE 79; RESP 19; TEMP 97.3
[2023-08-08] MEDS: ZOLPIDEM TARTRATE 10 MG TABLET PO PRN (21:12)
[2023-08-09] MEDS: HALOPERIDOL 5 MG TABLET PO PRN ×2 (01:55→10:52)
[2023-08-09] MEDS: LORazepam 2 MG TABLET PO PRN ×3 (01:55→20:41)
[2023-08-09 09:03] VITALS: BP 115/67; PULSE 63; RESP 18; TEMP 97.4
[2023-08-09 10:44] LABS: HEMOGLOBIN A1C 5.5 % (3.8-5.6)
[2023-08-09] MEDS: ATORVASTATIN CALCIUM 20 MG TABLET PO SCH (10:52)
[2023-08-09] MEDS: AmLODIPine BESYLATE 10 MG TABLET PO SCH (10:52)
[2023-08-09 11:16] LABS: CHOL/HDL RATIO 6.5 (4.2-7.3)
[2023-08-09 12:31] LABS: THYROID STIMULATING HORMONE 1.7 uIU/mL (0.36-3.74)
[2023-08-09] MEDS: RisperiDONE 3 MG TABLET PO SCH ×2 (13:55→20:53)
[2023-08-09 20:12] VITALS: BP 128/71; PULSE 71; RESP 18; TEMP 97.5
[2023-08-09] MEDS: ZOLPIDEM TARTRATE 10 MG TABLET PO PRN (20:41)
[2023-08-09] MEDS: MIRTAZAPINE 15 MG TABLET PO SCH (20:53)
[2023-08-10] MEDS ORDERED: LOPERAMIDE HCL 2 MG CAPSULE PO PRN (07:30)
[2023-08-10] MEDS ORDERED: CloNIDine HCL 0.1 MG TABLET PO PRN (07:30)
[2023-08-10] MEDS ORDERED: MAGNESIUM HYDROXIDE SUSPENSION 30 ML UDCUP PO PRN (07:30)
[2023-08-10] MEDS ORDERED: ACETAMINOPHEN 325 MG TABLET PO PRN (07:30)
[2023-08-10] MEDS ORDERED: IBUPROFEN 400 MG TABLET PO PRN (07:30)
[2023-08-10] MEDS ORDERED: MAG HYDROX/ALUMINUM HYD/SIMETH ES 30 ML SUSPENSION UDCUP PO PRN (07:30)
[2023-08-10] MEDS ORDERED: PETROLATUM,WHITE 28 GM JELLY TP PRN (07:30)
[2023-08-10] MEDS ORDERED: ONDANSETRON HCL 4 MG TABLET PO PRN (07:30)
[2023-08-10] MEDS ORDERED: GuaiFENesin/D-METHORPHAN [SUGAR-FREE] 200-20MG/10 ML SYRUP UDCUP PO PRN (07:30)
[2023-08-10] MEDS ORDERED: DOCUSATE SODIUM 100 MG CAPSULE PO PRN (07:30)
[2023-08-10] MEDS ORDERED: NICOTINE 14 MG/24 HOUR PATCH TD PRN (07:30)
[2023-08-10] MEDS ORDERED: ALBUTEROL SULFATE HFA 90 MCG/PUFF 8 GM INHALER IH PRN (07:30)
[2023-08-10] MEDS: ATORVASTATIN CALCIUM 20 MG TABLET PO SCH (09:39)
[2023-08-10] MEDS: RisperiDONE 3 MG TABLET PO SCH ×2 (09:39→20:53)
[2023-08-10] MEDS: AmLODIPine BESYLATE 10 MG TABLET PO SCH (09:39)
[2023-08-10 10:08] VITALS: BP 133/76; PULSE 105; RESP 19; TEMP 97.4
[2023-08-10] MEDS: HALOPERIDOL 5 MG TABLET PO PRN (19:55)
[2023-08-10] MEDS: LORazepam 2 MG TABLET PO PRN (19:55)
[2023-08-10 20:35] VITALS: BP 108/72; PULSE 90; RESP 18; TEMP 98
[2023-08-10] MEDS: BusPIRone HCL 10 MG TABLET PO SCH (20:53)
[2023-08-10] MEDS: ZOLPIDEM TARTRATE 10 MG TABLET PO PRN (20:53)
[2023-08-10] MEDS: MIRTAZAPINE 15 MG TABLET PO SCH (20:53)
[2023-08-11 07:21] LABS: THYROID STIMULATING HORMONE 2.83 uIU/mL (0.36-3.74)
[2023-08-11 07:35] LABS: HEMOGLOBIN A1C 5.4 % (3.8-5.6)
[2023-08-11 09:10] LABS: CHOL/HDL RATIO 5.6 (4.2-7.3)
[2023-08-11] MEDS: RisperiDONE 3 MG TABLET PO SCH ×2 (09:46→20:48)
[2023-08-11] MEDS: AmLODIPine BESYLATE 10 MG TABLET PO SCH (09:46)
[2023-08-11] MEDS: ATORVASTATIN CALCIUM 20 MG TABLET PO SCH (09:46)
[2023-08-11 09:57] VITALS: BP 149/93; PULSE 83; RESP 20; TEMP 97.3
[2023-08-11] MEDS: LORazepam 2 MG TABLET PO PRN (20:48)
[2023-08-11] MEDS: BusPIRone HCL 10 MG TABLET PO SCH (20:48)
[2023-08-11] MEDS: ZOLPIDEM TARTRATE 10 MG TABLET PO PRN (20:48)
[2023-08-11] MEDS: MIRTAZAPINE 15 MG TABLET PO SCH (20:49)
[2023-08-11 21:15] VITALS: BP 130/90; PULSE 81; RESP 19; TEMP 98
[2023-08-12 08:45] VITALS: BP 127/74; PULSE 84; RESP 18; TEMP 97.6
[2023-08-12] MEDS: RisperiDONE 3 MG TABLET PO SCH ×2 (10:00→21:29)
[2023-08-12] MEDS: ATORVASTATIN CALCIUM 20 MG TABLET PO SCH (10:00)
[2023-08-12] MEDS: AmLODIPine BESYLATE 10 MG TABLET PO SCH (10:00)
[2023-08-12 21:20] VITALS: RESP 18
[2023-08-12] MEDS: BusPIRone HCL 10 MG TABLET PO SCH (21:29)
[2023-08-12] MEDS: MIRTAZAPINE 15 MG TABLET PO SCH (21:29)
[2023-08-13] MEDS: RisperiDONE 3 MG TABLET PO SCH (10:43)
[2023-08-13] MEDS: AmLODIPine BESYLATE 10 MG TABLET PO SCH (10:43)
[2023-08-13] MEDS: ATORVASTATIN CALCIUM 20 MG TABLET PO SCH (10:43)
[2023-08-13 11:08] VITALS: BP 116/72; PULSE 71; RESP 16; TEMP 96.7
[2023-08-13] MEDS ORDERED: RISP3TAB63 PO (14:45)
[2023-08-13] MEDS ORDERED: BUSP10TA23 PO (14:46)
== END 2023-08-13 16:06 | disposition home or self-care (01) | DRG 750 ==
LOC: EMS 12:00 → 3EI 16:35
PROVIDERS: ADMIT Psychiatry & Neurology Psychiatry; ATTEND Psychiatry & Neurology Psychiatry
DX: F25.0 Schizoaffective disorder, bipolar type (principal); E66.9 Obesity, unspecified; G47.00 Insomnia, unspecified; I10 Essential (primary) hypertension; K21.9 Gastro-esophageal reflux disease without esophagitis; R79.89 Other specified abnormal findings of blood chemistry; Z20.822 Contact with and (suspected) exposure to COVID-19; F15.90 Other stimulant use, unspecified, uncomplicated; F16.90 Hallucinogen use, unspecified, uncomplicated; E78.00 Pure hypercholesterolemia, unspecified; Z79.899 Other long term (current) drug therapy; Z81.8 Family history of other mental and behavioral disorders; Z68.41 Body mass index [BMI] 40.0-44.9, adult; Z88.8 Allergy status to other drugs, medicaments and biological substances; Z59.00 Homelessness unspecified
CPT/HCPCS: 80053; 80061; 83036; 84443; 85025; 99285; G0480

== ENCOUNTER 2023-11-02 03:52 | Emergency (ER) | payer MEDICAID, OTHER ==
[~2023-11-02] VITALS: Ht 175.3 cm; Wt 140.0 kg
[~2023-11-02 03:52] MED LIST changes: +AMLO10TA55 PO; +ATOR20TA65 PO; +BUSP10TA23 PO; -DIVA-112 PO; +MIRT-92 PO; -PARO-37 PO; -RISP3TAB63 PO; +RISP3TAB77 PO
[2023-11-02 03:59] VITALS: BP 146/82; PULSE 120; RESP 16; TEMP 98
[2023-11-02 05:35] LABS: BASOPHILS % (AUTO) 0.9 % (0.0-2.0); EOSINOPHILS % (AUTO) 1.1 % (1.0-6.0); HEMATOCRIT 44.1 % (41-53); HEMOGLOBIN 14.5 g/dL (13.5-17.5); LYMPHOCYTES # (AUTO) 2.9 K/uL (1.0-4.8); LYMPHOCYTES % (AUTO) 24.3 % (22.0-44.0); MEAN CORPUSCULAR HEMOGLOBIN 25.2 pg (26.0-34.0); MEAN CORPUSCULAR HGB CONC 32.9 G/dL (31.0-37.0); MEAN CORPUSCULAR VOLUME 77 fL (80-100); MONOCYTES # (AUTO) 1.4 K/uL (0.1-1.0); NEUTROPHILS # (AUTO) 7.3 K/uL (1.8-7.7); NEUTROPHILS % (AUTO) 61.7 % (40.0-70.0); PLATELET COUNT (AUTO) 528 K/uL (150-450); RED BLOOD CELL COUNT(AUTO) 5.75 MIL/uL (4.50-5.90); RED CELL DISTRIBUTION WIDTH 13.2 % (11.5-14.5); WHITE BLOOD COUNT (AUTO) 11.8 K/uL (4.5-11.0)
[2023-11-02 05:42] LABS: ANION GAP 9 mmol/L (8-16); CARBON DIOXIDE 27 mmol/L (22-29); CHLORIDE 101 mmol/L (98-107); CREATININE 1.02 mg/dL (0.60-1.30); POTASSIUM 3.3 mmol/L (3.5-5.1); SODIUM SERUM 137 mmol/L (136-145); UREA NITROGEN, BLOOD 10 mg/dL (7-18)
[2023-11-02 05:43] LABS: GLOMERULAR FILTR. RATE CALC > 60 mL/min (>60)
[2023-11-02 05:48] LABS: ALANINE AMINOTRANSFERASE 58 U/L (12-78); ALBUMIN 4.2 g/dL (3.4-5.0); ALKALINE PHOSPHATASE 91 U/L (46-116); ASPARTATE AMINOTRANSFERASE 32 U/L (15-37); BILIRUBIN,TOTAL 0.4 mg/dL (0.1-1.0); CALCIUM, TOTAL 9.7 mg/dL (8.8-10.5); GLUCOSE,RANDOM 92 mg/dL (70-110); TOTAL PROTEIN, SERUM 8.2 g/dL (6.4-8.2)
[2023-11-02 05:49] LABS: ALCOHOL, BLOOD (SERUM) < 3 mg/dL (0-10)
[2023-11-02] MEDS ORDERED: ESZO3TAB53 PO (06:39)
[2023-11-02] MEDS ORDERED: RISP3TAB77 PO (06:39)
[2023-11-02] MEDS ORDERED: MIRT-92 PO (06:39)
[2023-11-02] MEDS ORDERED: AMLO10TA55 PO (06:39)
[2023-11-02] MEDS ORDERED: BUPR-344 PO (06:41)
[2023-11-02] MEDS ORDERED: DIPH-1139 PO (06:43)
[2023-11-02] MEDS ORDERED: PARO-38 PO (06:43)
[2023-11-02 06:45] LABS: RBC MORPHOLOGY COMMENT ABNORMAL RBC MORPH
[2023-11-02] MEDS: POTASSIUM CHLORIDE 10% 40 MEQ/30 ML LIQUID UDCUP PO ONE (06:46)
[2023-11-03] MEDS ORDERED: DIPH-1243 PO (17:14)
[2023-11-08] MEDS ORDERED: RISP3TAB77 PO (09:22)
== END 2023-11-02 06:52 | disposition still patient (30) ==
LOC: EMS 03:53
DX: F25.9 Schizoaffective disorder, unspecified (principal); E87.6 Hypokalemia; E78.00 Pure hypercholesterolemia, unspecified; I10 Essential (primary) hypertension; Z88.8 Allergy status to other drugs, medicaments and biological substances
CPT/HCPCS: 99283; 80053; 85025; 36415; G0480

== ENCOUNTER 2023-11-03 02:10 | Inpatient (IN) | payer MEDICAID, OTHER ==
[~2023-11-03] VITALS: Ht 175.3 cm; Wt 139.7 kg
[~2023-11-03 02:10] MED LIST changes: +BUPR-344 PO; +DIPH-1139 PO; +ESZO3TAB53 PO; +PARO-38 PO; +RISP3TAB63 PO; -RISP3TAB77 PO
[2023-11-03 03:21] LABS: EOSINOPHILS % (AUTO) 1.6 % (1.0-6.0); HEMATOCRIT 41.7 % (41-53); LYMPHOCYTES # (AUTO) 2.6 K/uL (1.0-4.8); LYMPHOCYTES % (AUTO) 23.7 % (22.0-44.0); MEAN CORPUSCULAR HEMOGLOBIN 25.5 pg (26.0-34.0); MEAN CORPUSCULAR HGB CONC 33.5 G/dL (31.0-37.0); MEAN CORPUSCULAR VOLUME 76 fL (80-100); MONOCYTES # (AUTO) 1.2 K/uL (0.1-1.0); MONOCYTES % (AUTO) 11.3 % (2.0-9.0); NEUTROPHILS # (AUTO) 6.8 K/uL (1.8-7.7); NEUTROPHILS % (AUTO) 62.4 % (40.0-70.0); PLATELET COUNT (AUTO) 510 K/uL (150-450); RED BLOOD CELL COUNT(AUTO) 5.47 MIL/uL (4.50-5.90); RED CELL DISTRIBUTION WIDTH 13.6 % (11.5-14.5); WHITE BLOOD COUNT (AUTO) 10.9 K/uL (4.5-11.0)
[2023-11-03 03:24] LABS: ANION GAP 8 mmol/L (8-16); CALCIUM, TOTAL 9.3 mg/dL (8.8-10.5); CARBON DIOXIDE 28 mmol/L (22-29); CHLORIDE 102 mmol/L (98-107); CREATININE 1.03 mg/dL (0.60-1.30); GLOMERULAR FILTR. RATE CALC > 60 mL/min (>60); GLUCOSE,RANDOM 101 mg/dL (70-110); POTASSIUM 3.6 mmol/L (3.5-5.1); SODIUM SERUM 138 mmol/L (136-145); UREA NITROGEN, BLOOD 14 mg/dL (7-18)
[2023-11-03 03:29] LABS: ALANINE AMINOTRANSFERASE 60 U/L (12-78); ALBUMIN 3.8 g/dL (3.4-5.0); ALKALINE PHOSPHATASE 86 U/L (46-116); ASPARTATE AMINOTRANSFERASE 36 U/L (15-37); BILIRUBIN,TOTAL 0.4 mg/dL (0.1-1.0); TOTAL PROTEIN, SERUM 7.6 g/dL (6.4-8.2)
[2023-11-03 03:44] LABS: ALCOHOL, BLOOD (SERUM) < 3 mg/dL (0-10)
[2023-11-03 06:12] LABS: COVID AG,FIA SOURCE NASAL SWAB
[2023-11-03 06:46] LABS: SARS-COV2 (COVID) ANTIGEN,FIA Negative (Negative)
[2023-11-03] MEDS ORDERED: MAGNESIUM HYDROXIDE SUSPENSION 30 ML UDCUP PO PRN (09:15)
[2023-11-03] MEDS ORDERED: IBUPROFEN 400 MG TABLET PO PRN (09:15)
[2023-11-03] MEDS ORDERED: DOCUSATE SODIUM 100 MG CAPSULE PO PRN (09:15)
[2023-11-03] MEDS ORDERED: LOPERAMIDE HCL 2 MG CAPSULE PO PRN (09:15)
[2023-11-03] MEDS ORDERED: CloNIDine HCL 0.1 MG TABLET PO PRN (09:15)
[2023-11-03] MEDS ORDERED: GuaiFENesin/D-METHORPHAN [SUGAR-FREE] 200-20MG/10 ML SYRUP UDCUP PO PRN (09:15)
[2023-11-03] MEDS ORDERED: ACETAMINOPHEN 325 MG TABLET PO PRN (09:15)
[2023-11-03] MEDS ORDERED: MAG HYDROX/ALUMINUM HYD/SIMETH ES 30 ML SUSPENSION UDCUP PO PRN (09:15)
[2023-11-03] MEDS ORDERED: NICOTINE 14 MG/24 HOUR PATCH TD PRN (09:15)
[2023-11-03] MEDS ORDERED: ONDANSETRON HCL 4 MG TABLET PO PRN (09:15)
[2023-11-03] MEDS ORDERED: ALBUTEROL SULFATE HFA 90 MCG/PUFF 8 GM INHALER IH PRN (09:15)
[2023-11-03 11:01] VITALS: BP 126/72; PULSE 70; RESP 17; TEMP 98; O2SAT 98
[2023-11-03] MEDS: BuPROPion HCL 75 MG TABLET PO SCH (11:01)
[2023-11-03] MEDS: PARoxetine HCL 20 MG TABLET PO SCH (11:01)
[2023-11-03] MEDS: RisperiDONE 3 MG TABLET PO SCH (11:01)
[2023-11-03] MEDS: LORazepam 1 MG TABLET PO PRN (11:02)
[2023-11-03] MEDS: HALOPERIDOL 5 MG TABLET PO PRN (11:02)
[2023-11-03] MEDS ORDERED: DIPH-1243 PO (17:14)
[2023-11-03] MEDS: BusPIRone HCL 10 MG TABLET PO SCH (20:38)
[2023-11-03] MEDS: ZOLPIDEM TARTRATE 10 MG TABLET PO PRN (20:39)
[2023-11-03] MEDS: MIRTAZAPINE 15 MG TABLET PO SCH (20:39)
[2023-11-03 20:55] VITALS: BP 116/65; PULSE 66; RESP 18; TEMP 98.2; O2SAT 98
[2023-11-04 08:09] LABS: HEMOGLOBIN A1C 5.4 % (3.8-5.6)
[2023-11-04 08:22] LABS: THYROID STIMULATING HORMONE 1.28 uIU/mL (0.36-3.74)
[2023-11-04] MEDS: AmLODIPine BESYLATE 10 MG TABLET PO SCH (08:24)
[2023-11-04 08:40] LABS: CHOL/HDL RATIO 4.5 (4.2-7.3)
[2023-11-04] MEDS: ATORVASTATIN CALCIUM 20 MG TABLET PO SCH (09:13)
[2023-11-04 11:53] VITALS: BP 140/84; PULSE 118; RESP 17; TEMP 97.2; O2SAT 98
[2023-11-04 22:45] VITALS: BP 124/79; PULSE 77; RESP 18; TEMP 97.8
[2023-11-05 10:36] VITALS: BP 155/90; PULSE 100; RESP 18; TEMP 97.6; O2SAT 95
[2023-11-05 20:22] VITALS: BP 140/84; PULSE 110; RESP 20; TEMP 97.6; O2SAT 100
[2023-11-06 08:18] VITALS: BP 144/97; PULSE 100; RESP 18; TEMP 98; O2SAT 98
[2023-11-06 20:19] VITALS: BP 104/61; PULSE 74; RESP 18; TEMP 96.8; O2SAT 99
[2023-11-07 09:04] VITALS: BP 124/75; PULSE 112; RESP 18; TEMP 98.2; O2SAT 98
[2023-11-07 20:00] VITALS: BP 149/81; PULSE 110; RESP 18; TEMP 98.2; O2SAT 98
[2023-11-07] MEDS: PETROLATUM,WHITE 28 GM JELLY TP PRN (23:38)
[2023-11-08 08:22] VITALS: BP 131/64; PULSE 98; RESP 18; TEMP 98.1; O2SAT 100
[2023-11-08] MEDS ORDERED: BUSP10TA23 PO (09:22)
[2023-11-08] MEDS ORDERED: BUPR-344 PO (09:22)
[2023-11-08] MEDS ORDERED: PARO-37 PO (09:22)
[2023-11-08] MEDS ORDERED: RISP3TAB63 PO (09:22)
[2023-11-08] MEDS ORDERED: MIRT-89 PO (09:22)
[2023-11-08 19:37] VITALS: BP 127/66; PULSE 96; RESP 18; TEMP 98
[2023-11-09 08:17] VITALS: BP 153/97; PULSE 100; RESP 18; TEMP 97.5; O2SAT 96
[2023-11-09] MEDS: RisperiDONE ER SUSPENSION 120 MG PRE-FILLED SYRINGE SQ SCH (16:06)
[2023-11-09 22:27] VITALS: BP 131/77; PULSE 98; RESP 18; TEMP 97.8; O2SAT 98
[2023-11-10 08:37] VITALS: BP 150/82; PULSE 100; RESP 18; TEMP 97.8; O2SAT 97
[2023-11-10] MEDS ORDERED: RISP120S SQ (10:52)
[2023-11-10] MEDS ORDERED: RISP1TAB48 PO (10:52)
[2023-11-10] MEDS ORDERED: RisperiDONE 1 MG TABLET PO SCH (21:00)
== END 2023-11-10 14:48 | disposition home or self-care (01) | DRG 750 ==
LOC: EMS 02:12 → B3A 07:24
PROVIDERS: ADMIT Psychiatry & Neurology Child & Adolescent Psychiatry; ATTEND Psychiatry & Neurology Child & Adolescent Psychiatry
PROC: GZHZZZZ Group Psychotherapy (ICD-10-PCS; principal; 2023-11-10)
DX: F25.0 Schizoaffective disorder, bipolar type (principal); Z91.148 Patient's other noncompliance with medication regimen for other reason; E78.00 Pure hypercholesterolemia, unspecified; Z20.822 Contact with and (suspected) exposure to COVID-19; G47.00 Insomnia, unspecified; I10 Essential (primary) hypertension; Z79.899 Other long term (current) drug therapy; Z88.8 Allergy status to other drugs, medicaments and biological substances
CPT/HCPCS: 80053; 80061; 83036; 84443; 85025; 99285; G0480; Q9967

== ENCOUNTER 2024-02-20 23:46 | Inpatient (IN) | payer MEDICAID ==
[~2024-02-20] VITALS: Ht 185.4 cm; Wt 125.2 kg
[~2024-02-20 23:46] MED LIST changes: -DIPH-1139 PO; -ESZO3TAB53 PO; +MIRT-89 PO; -MIRT-92 PO; +PARO-37 PO; -PARO-38 PO; +RISP120S SQ; +RISP1TAB48 PO; -RISP3TAB63 PO
[2024-02-20] MEDS ORDERED: HALOPERIDOL LACTATE 5 MG/ML VIAL ONE (23:57)
[2024-02-20] MEDS ORDERED: DiphenhydrAMINE HCL 50 MG/ML VIAL ONE (23:57)
[2024-02-20] MEDS ORDERED: LORazepam 2 MG/ML VIAL ONE (23:57)
[2024-02-21] MEDS ORDERED: HALOPERIDOL LACTATE 5 MG/ML VIAL IM ONE
[2024-02-21] MEDS ORDERED: LORazepam 2 MG/ML VIAL IM ONE
[2024-02-21] MEDS ORDERED: DiphenhydrAMINE HCL 50 MG/ML VIAL IM ONE
[2024-02-21] MEDS: SODIUM CHLORIDE 0.9% 1,000 ML IV ONE ×3 (00:24→02:37)
[2024-02-21 00:26] LABS: BASOPHILS % (AUTO) 0.6 % (0.0-2.0); EOSINOPHILS % (AUTO) 0.7 % (1.0-6.0); HEMATOCRIT 47.3 % (41-53); HEMOGLOBIN 15.2 g/dL (13.5-17.5); LYMPHOCYTES # (AUTO) 2.6 K/uL (1.0-4.8); LYMPHOCYTES % (AUTO) 15.5 % (22.0-44.0); MEAN CORPUSCULAR HEMOGLOBIN 24.5 pg (26.0-34.0); MEAN CORPUSCULAR HGB CONC 32.1 G/dL (31.0-37.0); MEAN CORPUSCULAR VOLUME 76 fL (80-100); MONOCYTES # (AUTO) 1.1 K/uL (0.1-1.0); MONOCYTES % (AUTO) 6.4 % (2.0-9.0); NEUTROPHILS # (AUTO) 12.9 K/uL (1.8-7.7); NEUTROPHILS % (AUTO) 76.8 % (40.0-70.0); PLATELET COUNT (AUTO) 408 K/uL (150-450); RED BLOOD CELL COUNT(AUTO) 6.22 MIL/uL (4.50-5.90); WHITE BLOOD COUNT (AUTO) 16.8 K/uL (4.5-11.0)
[2024-02-21 00:36] LABS: ANION GAP 16 mmol/L (8-16); CALCIUM, TOTAL 8.7 mg/dL (8.8-10.5); CARBON DIOXIDE 21 mmol/L (22-29); CHLORIDE 102 mmol/L (98-107); CREATININE 1.08 mg/dL (0.60-1.30); GLOMERULAR FILTR. RATE CALC > 60 mL/min (>60); GLUCOSE,RANDOM 121 mg/dL (70-110); POTASSIUM 3.4 mmol/L (3.5-5.1); SODIUM SERUM 139 mmol/L (136-145); UREA NITROGEN, BLOOD 12 mg/dL (7-18)
[2024-02-21 00:42] LABS: ALCOHOL, BLOOD (SERUM) < 3 mg/dL (0-10)
[2024-02-21 00:53] LABS: SALICYLATE 1.3 mg/dL (2.8-20.0)
[2024-02-21] MEDS: LORazepam 2 MG/ML VIAL IVP ONE ×2 (01:01→02:01)
[2024-02-21 01:08] LABS: ACETAMINOPHEN < 2 mcg/mL (10-30); ALANINE AMINOTRANSFERASE 28 U/L (12-78); ALBUMIN 4.1 g/dL (3.4-5.0); ALKALINE PHOSPHATASE 103 U/L (46-116); ASPARTATE AMINOTRANSFERASE 21 U/L (15-37); BILIRUBIN,TOTAL 0.5 mg/dL (0.1-1.0); CREATINE KINASE, TOTAL ONLY 243 U/L (39-308); PHOSPHORUS 3.5 mg/dL (2.5-4.9); TOTAL PROTEIN, SERUM 8.5 g/dL (6.4-8.2); TROPONIN I-HIGH SENSITIVITY 5 ng/L (<76)
[2024-02-21 01:25] LABS: B-TYPE NATRIURETIC PEPTIDE < 5 pg/mL (0-100)
[2024-02-21 02:37] LABS: COVID AG,FIA SOURCE NASAL SWAB
[2024-02-21 02:55] LABS: APPEARANCE,URINE CLEAR (CLEAR); BILIRUBIN,URINE NEGATIVE (NEGATIVE); COLOR,URINE COLORLESS (YELLOW); GLUCOSE, URINE (UA) NEGATIVE (NEGATIVE); KETONES,URINE NEGATIVE (NEGATIVE); LEUKOCYTE ESTERASE ,URINE NEGATIVE (NEGATIVE); NITRATE,URINE NEGATIVE (NEGATIVE); OCCULT BLOOD,URINE NEGATIVE (NEGATIVE); PH,URINE 5.5 (5.0-8.0); PH,URINE DRUG SCREEN 5.5 (5.0-8.0); PROTEIN,URINE NEGATIVE (NEGATIVE); SPECIFIC GRAVITIY, URINE 1.018 (1.003-1.030); UROBILINOGEN,URINE <=1.0 mg/dL (<=1.0)
[2024-02-21 02:59] LABS: SARS-COV2 (COVID) ANTIGEN,FIA Negative (Negative)
[2024-02-21 03:17] LABS: ALCOHOL, URINE DRUG SCREEN NEGATIVE (NEGATIVE); AMPHET/METH SCREEN,URINE NEGATIVE (NEGATIVE); BARBITURATE SCREEN, URINE NEGATIVE (NEGATIVE); BENZODIAZEPINES SCREEN,URINE NEGATIVE (NEGATIVE); CANNABINOID SCREEN,URINE NEGATIVE (NEGATIVE); COCAINE SCREEN,URINE NEGATIVE (NEGATIVE); METHADONE SCREEN, URINE NEGATIVE (NEGATIVE); OPIATE SCREEN,URINE NEGATIVE (NEGATIVE); PHENCYCLIDINE SCREEN,URINE NEGATIVE (NEGATIVE)
[2024-02-21] MEDS ORDERED: ONDANSETRON HCL 4 MG/2 ML VIAL IVP PRN ×2 (06:00→19:15)
[2024-02-21] MEDS ORDERED: 0.9% SODIUM CHLORIDE 10 ML SYRINGE IVP PRN (06:00)
[2024-02-21] MEDS: ACETAMINOPHEN 325 MG TABLET PO PRN (11:27)
[2024-02-21 13:10] VITALS: BP 139/92; PULSE 81; RESP 19; TEMP 98.2
[2024-02-21 16:02] VITALS: BP 135/81; PULSE 94; RESP 20; TEMP 98.1
[2024-02-21] MEDS ORDERED: ALBUTEROL SULFATE 2.5 MG/0.5 ML NEB SOLUTION NEB PRN (19:15)
[2024-02-21] MEDS ORDERED: IPRATROPIUM BROMIDE 0.5 MG/2.5 ML NEB SOLUTION NEB PRN (19:15)
[2024-02-21] MEDS ORDERED: ACETAMINOPHEN 325 MG TABLET PO PRN (19:15)
[2024-02-21] MEDS ORDERED: MAGNESIUM HYDROXIDE SUSPENSION 30 ML UDCUP PO PRN (19:15)
[2024-02-21] MEDS ORDERED: MAGNESIUM OXIDE 400 MG TABLET PO PRN (19:15)
[2024-02-21] MEDS ORDERED: HYDROCODONE/ACETAMINOPHEN 5-325 MG TABLET PO PRN (19:15)
[2024-02-21] MEDS ORDERED: BISACODYL 10 MG RECTAL RECTAL SUPPOSITORY PR PRN (19:15)
[2024-02-21] MEDS ORDERED: MAGNESIUM SULFATE 4 GM/WATER 100 ML IV PRN (19:15)
[2024-02-21] MEDS ORDERED: MORPHINE SULFATE 2 MG/ML SYRINGE IVP PRN (19:15)
[2024-02-21] MEDS ORDERED: MAGNESIUM SULFATE 2 GM/WATER 50 ML IV PRN (19:15)
[2024-02-21 19:54] VITALS: BP 145/91; PULSE 66; RESP 19; TEMP 97.6
[2024-02-21] MEDS: DOCUSATE SODIUM 100 MG CAPSULE PO SCH (21:00)
[2024-02-21] MEDS: ZOLPIDEM TARTRATE 5 MG TABLET PO PRN (22:31)
[2024-02-21] MEDS: POTASSIUM CHLORIDE 20 MEQ ER TABLET PO PRN (22:32)
[2024-02-21] MEDS: HEPARIN SODIUM,PORCINE 5,000 UNITS/ML VIAL SQ SCH (23:28)
[2024-02-21 23:56] VITALS: BP_SYST 151; BP_SYST 51; BP_DIAS 88; PULSE 76; RESP 18; TEMP 98
[2024-02-22 05:11] VITALS: BP 155/76; PULSE 75; RESP 18; TEMP 97.8
[2024-02-22 06:04] LABS: BASOPHILS % (AUTO) 0.9 % (0.0-2.0); EOSINOPHILS % (AUTO) 2.6 % (1.0-6.0); HEMOGLOBIN 14.2 g/dL (13.5-17.5); LYMPHOCYTES # (AUTO) 2.8 K/uL (1.0-4.8); LYMPHOCYTES % (AUTO) 28.9 % (22.0-44.0); MEAN CORPUSCULAR HEMOGLOBIN 25.1 pg (26.0-34.0); MEAN CORPUSCULAR HGB CONC 33.2 G/dL (31.0-37.0); MEAN CORPUSCULAR VOLUME 76 fL (80-100); MONOCYTES # (AUTO) 0.9 K/uL (0.1-1.0); MONOCYTES % (AUTO) 9.7 % (2.0-9.0); NEUTROPHILS # (AUTO) 5.5 K/uL (1.8-7.7); NEUTROPHILS % (AUTO) 57.9 % (40.0-70.0); PLATELET COUNT (AUTO) 389 K/uL (150-450); RED BLOOD CELL COUNT(AUTO) 5.67 MIL/uL (4.50-5.90); RED CELL DISTRIBUTION WIDTH 14.1 % (11.5-14.5); WHITE BLOOD COUNT (AUTO) 9.5 K/uL (4.5-11.0)
[2024-02-22 06:15] LABS: ANION GAP 9 mmol/L (8-16); CALCIUM, TOTAL 9.2 mg/dL (8.8-10.5); CARBON DIOXIDE 25 mmol/L (22-29); CHLORIDE 105 mmol/L (98-107); CREATININE 1.03 mg/dL (0.60-1.30); GLOMERULAR FILTR. RATE CALC > 60 mL/min (>60); GLUCOSE,RANDOM 153 mg/dL (70-110); POTASSIUM 3.4 mmol/L (3.5-5.1); SODIUM SERUM 139 mmol/L (136-145); UREA NITROGEN, BLOOD 12 mg/dL (7-18)
[2024-02-22 07:43] VITALS: BP 151/91; PULSE 72; RESP 18; TEMP 98.1
[2024-02-22] MEDS: ATORVASTATIN CALCIUM 20 MG TABLET PO SCH (09:52)
[2024-02-22] MEDS: PANTOPRAZOLE SODIUM 40 MG/VIAL IVP SCH (10:06)
[2024-02-22] MEDS: AmLODIPine BESYLATE 10 MG TABLET PO SCH (10:07)
[2024-02-22 11:37] VITALS: BP 137/89; PULSE 78; RESP 18; TEMP 97.8
[2024-02-22] MEDS: RisperiDONE 1 MG TABLET PO SCH (14:48)
[2024-02-22 16:28] VITALS: BP 130/83; PULSE 66; RESP 18; TEMP 98.3
[2024-02-22 19:53] VITALS: BP 129/73; PULSE 75; RESP 19; TEMP 98
[2024-02-22 20:55] VITALS: BP 118/74; PULSE 82; RESP 18; TEMP 98.2
[2024-02-22] MEDS: MIRTAZAPINE 30 MG TABLET PO SCH (21:01)
[2024-02-23 05:32] VITALS: BP 123/80; PULSE 69; RESP 18; TEMP 97.6
[2024-02-23 07:21] VITALS: BP 115/68; PULSE 77; RESP 18; TEMP 97.9
[2024-02-23 07:23] LABS: BASOPHILS % (AUTO) 0.7 % (0.0-2.0); EOSINOPHILS % (AUTO) 2.6 % (1.0-6.0); HEMATOCRIT 44.9 % (41-53); HEMOGLOBIN 14.7 g/dL (13.5-17.5); LYMPHOCYTES # (AUTO) 3.8 K/uL (1.0-4.8); LYMPHOCYTES % (AUTO) 38.2 % (22.0-44.0); MEAN CORPUSCULAR HEMOGLOBIN 24.7 pg (26.0-34.0); MEAN CORPUSCULAR HGB CONC 32.8 G/dL (31.0-37.0); MEAN CORPUSCULAR VOLUME 75 fL (80-100); MONOCYTES # (AUTO) 0.9 K/uL (0.1-1.0); MONOCYTES % (AUTO) 9.3 % (2.0-9.0); NEUTROPHILS # (AUTO) 4.9 K/uL (1.8-7.7); NEUTROPHILS % (AUTO) 49.2 % (40.0-70.0); PLATELET COUNT (AUTO) 374 K/uL (150-450); RED BLOOD CELL COUNT(AUTO) 5.98 MIL/uL (4.50-5.90); RED CELL DISTRIBUTION WIDTH 14.1 % (11.5-14.5)
[2024-02-23 07:43] LABS: ANION GAP 9 mmol/L (8-16); CALCIUM, TOTAL 9.2 mg/dL (8.8-10.5); CARBON DIOXIDE 25 mmol/L (22-29); CHLORIDE 105 mmol/L (98-107); CREATININE 1.01 mg/dL (0.60-1.30); GLOMERULAR FILTR. RATE CALC > 60 mL/min (>60); GLUCOSE,RANDOM 100 mg/dL (70-110); POTASSIUM 4.2 mmol/L (3.5-5.1); SODIUM SERUM 139 mmol/L (136-145); UREA NITROGEN, BLOOD 14 mg/dL (7-18)
[2024-02-23] MEDS: PANTOPRAZOLE SODIUM 40 MG DR TABLET PO SCH (08:38)
[2024-02-23 16:02] VITALS: BP 120/75; PULSE 81; RESP 19; TEMP 98.1
[2024-02-23 19:30] VITALS: BP 122/51; PULSE 74; RESP 18; TEMP 97.9
[2024-02-24 04:27] VITALS: BP 134/82; PULSE 78; RESP 20; TEMP 97.5
[2024-02-24 07:19] VITALS: BP 130/80; PULSE 76; RESP 20; TEMP 97.8
== END 2024-02-24 12:39 | disposition home or self-care (01) | DRG 812 ==
LOC: EMS 23:47 → 5S 02-21 10:54 → 6N 02-22 20:38
PROVIDERS: ADMIT Hospitalist; ATTEND Hospitalist
DX: T50.901A Poisoning by unspecified drugs, medicaments and biological substances, accidental (unintentional), initial encounter (principal); F25.0 Schizoaffective disorder, bipolar type; D72.829 Elevated white blood cell count, unspecified; Z20.822 Contact with and (suspected) exposure to COVID-19; I10 Essential (primary) hypertension; E87.6 Hypokalemia; E78.5 Hyperlipidemia, unspecified; E78.00 Pure hypercholesterolemia, unspecified; Y92.89 Other specified places as the place of occurrence of the external cause
CPT/HCPCS: 70450; 71045; 80048; 80076; 80307; 81003; 82040; 82550; 83735; 83880; 84100; 84132; 84484; 85025; 87040; 93005; 99285; C9113; G0480; G0481; J1200; J1630; J1644; J2060; 36415-L1; 36415-TC